=== PATIENT | male | born 1975 | race Caucasian/White ===

== ENCOUNTER 2017-06-29 21:51 | Inpatient (IN) | payer OTHER ==
[~2017-06-29] VITALS: Ht 182.9 cm; Wt 69.4 kg
[~2017-06-29 21:51] MED LIST: PERCOCET 5/31 TABLET PO
[2017-06-29 22:42] LABS: HEMATOCRIT 43.3 % (38.0-50.0); MCH 31.7 PG (29.0-34.0); MCHC 35.3 G/DL (30.0-36.0); MCV 89.6 FL (86-99); MEAN PLAT.VOLUME 10.1 uM^3 (9.0-12.4); PLATELET COUNT 352 K/uL (156-360); RBC DIS.WIDTH-CV 12.8 % (11.8-14.6); RBC DIS.WIDTH-SD 42.3 % (39-53); RED BLOOD COUNT 4.83 M/uL (4.00-5.50); WHITE BLOOD COUNT 10.1 K/uL (4.1-10.2)
[2017-06-29 22:50] LABS: CHLORIDE 104 mEq/L (99-109); POTASSIUM 3.6 mEq/L (3.7-5.4); SODIUM 141 mEq/L (136-147)
[2017-06-29 22:52] LABS: GLUCOSE 103 mg/dL (70-99)
[2017-06-29 22:54] LABS: ANION GAP 11 MEQ/L (2-14)
[2017-06-29 22:55] LABS: SERUM ETHYL ALCOHOL < 10 mg/dL
[2017-06-29 22:56] LABS: GFR ESTIMATE (CALCULATED) > 59 mL/min/ (58.99-99999)
[2017-06-29 22:58] LABS: UREA NITROGEN (BUN) 6 mg/dL (9-23)
[2017-06-29 22:59] LABS: SALICYLATE < 5.0 MG/DL (15-30)
[2017-06-30 00:20] LABS: ADD MEDTOX COMMENT Y; AMPHETAMINE NEGATIVE (500 ng/mL); BARBITURATES NEGATIVE (200 ng/mL); BENZODIAZEPINES NEGATIVE (150 ng/mL); COCAINE NEGATIVE (150 ng/mL); INTERNAL CONTROLS VALID? YES; METHADONE PRESUMPTIVE POSITIVE (200 ng/mL); METHAMPHETAMINE NEGATIVE (500 ng/mL); OPIATES (MORPHINE) NEGATIVE (100 ng/mL); OXYCODONE PRESUMPTIVE POSITIVE (100 ng/mL); PHENCYCLIDINE NEGATIVE (25 ng/mL); PROPOXYPHENE NEGATIVE (300 ng/mL); THC CANNABINOIDS PRESUMPTIVE POSITIVE (50 ng/mL); TRICYCLIC ANTIDEPRESSANTS NEGATIVE (300 ng/mL)
[2017-06-30 03:25] VITALS: BP 128/72
[2017-06-30 07:52] VITALS: BP 87/52
[2017-06-30 08:00] VITALS: BP 87/52
[2017-06-30 15:36] VITALS: BP 131/75
[2017-07-01 07:33] VITALS: BP 115/70
[2017-07-01 15:54] VITALS: BP 127/65
[2017-07-02 07:53] VITALS: BP 117/66
[2017-07-02 15:26] VITALS: BP 129/65
[2017-07-03 08:01] VITALS: BP 132/78
[2017-07-03 16:21] VITALS: BP 132/80
[2017-07-04 07:43] VITALS: BP 133/76
[2017-07-04 15:47] VITALS: BP 111/58
[2017-07-05 07:57] VITALS: BP 141/85
[2017-07-05] MEDS ORDERED: TRILAFON4 MG PO (09:52)
[2017-07-05] MEDS ORDERED: OLANZAPINE10 MG PO (09:52)
[2017-07-05] MEDS ORDERED: HYDROXYZINE PAM50 MG PO (09:52)
== END 2017-07-05 13:06 | disposition home or self-care (01) | DRG 885 ==
LOC: EME 21:51 → 1WEST 23:32 → EDOF 23:32 → ENRESERV 06-30 03:20 → 1WEST 06-30 03:20
PROVIDERS: Emergency Medicine
DX: F20.0 Paranoid schizophrenia (principal); Z91.14 Patient's other noncompliance with medication regimen; Z59.0 Homelessness; F41.1 Generalized anxiety disorder; G47.00 Insomnia, unspecified; G43.909 Migraine, unspecified, not intractable, without status migrainosus; F32.9 Major depressive disorder, single episode, unspecified; R63.4 Abnormal weight loss; Z68.1 Body mass index [BMI] 19.9 or less, adult; F12.90 Cannabis use, unspecified, uncomplicated; F17.200 Nicotine dependence, unspecified, uncomplicated; Z87.820 Personal history of traumatic brain injury
CPT/HCPCS: 70450; 72125; 80048; 84999; 85027; 90837; 97150 GO; 99281; 99285; G0480; J1630; Q0175; Q0177

== ENCOUNTER 2017-07-13 03:58 | Emergency (ER) | payer OTHER ==
[~2017-07-13] VITALS: Ht 185.4 cm; Wt 69.8 kg
[~2017-07-13 03:58] MED LIST changes: +HYDROXYZINE PAM50 MG PO; +OLANZAPINE10 MG PO; +TRILAFON4 MG PO
[2017-07-13 04:00] VITALS: BP 134/92
[2017-07-13] MEDS ORDERED: PERCOCET 5/31 TABLET PO (07:33)
[2017-07-13] MEDS ORDERED: FLEXERIL10 MG PO (07:33)
== END 2017-07-13 07:51 | disposition home or self-care (01) ==
LOC: EME 03:58
DX: M54.2 Cervicalgia (principal); F17.200 Nicotine dependence, unspecified, uncomplicated
CPT/HCPCS: 99281; 99284

== ENCOUNTER 2017-10-08 22:42 | Inpatient (IN) | payer OTHER ==
[~2017-10-08] VITALS: Ht 185.4 cm; Wt 79.3 kg
[~2017-10-08 22:42] MED LIST changes: +FLEXERIL10 MG PO
[2017-10-09 00:06] LABS: HEMATOCRIT 50.7 % (38.0-50.0); HEMOGLOBIN 17.3 G/DL (12.5-16.6); MCH 31.2 PG (29.0-34.0); MCHC 34.1 G/DL (30.0-36.0); MCV 91.4 FL (86-99); RBC DIS.WIDTH-CV 13.6 % (11.8-14.6); RBC DIS.WIDTH-SD 46.4 % (39-53); RED BLOOD COUNT 5.55 M/uL (4.00-5.50); WHITE BLOOD COUNT 9.3 K/uL (4.1-10.2)
[2017-10-09 00:16] LABS: ALBUMIN 5.4 g/dL (3.2-4.8)
[2017-10-09 00:17] LABS: CHLORIDE 105 mEq/L (99-109); POTASSIUM 3.6 mEq/L (3.7-5.4); SODIUM 143 mEq/L (136-147)
[2017-10-09 00:19] LABS: GLUCOSE 100 mg/dL (70-99); TOTAL PROTEIN 9.2 g/dL (6.4-8.3)
[2017-10-09 00:21] LABS: TOTAL BILIRUBIN 0.2 mg/dL (0.0-1.0)
[2017-10-09 00:22] LABS: SERUM ETHYL ALCOHOL 266 mg/dL
[2017-10-09 00:23] LABS: ALKALINE PHOSPHATASE 155 IU/L (3-129); GFR ESTIMATE (CALCULATED) > 59 mL/min/ (58.99-99999)
[2017-10-09 00:24] LABS: AST (GOT) 26 IU/L (2-34); UREA NITROGEN (BUN) 12 mg/dL (9-23)
[2017-10-09 00:26] LABS: ALT (GPT) 26 IU/L (3-49)
[2017-10-09 01:51] LABS: PLAT.SUFFICIENCY ADEQUATE; PLATELET COUNT 325 K/uL (156-360)
[2017-10-09 08:49] LABS: APPEARANCE CLEAR ((CLEAR)); COLOR YELLOW ((YELLOW))
[2017-10-09 08:51] LABS: BLOOD MODERATE; PROTEIN (STRIP) TRACE
[2017-10-09 08:52] LABS: BILIRUBIN NEGATIVE; GLUCOSE (STRIP) NEGATIVE; KETONES NEGATIVE; LEUKOCYTES NEGATIVE; NITRITE NEGATIVE; UROBILINOGEN 0.2 MG/DL (0.2-1.0)
[2017-10-09 09:03] LABS: BACTERIA NONE SEEN /HPF; EPITHELIAL CELLS NONE SEEN /HPF; MUCUS NONE SEEN /LPF; UCUL ADDED? NO; WHITE BLOOD CELLS RARE /HPF (0-5)
[2017-10-09 09:15] LABS: BENZODIAZEPINES, URINE SCREEN Negative (200 ng/mL)
[2017-10-09 13:12] VITALS: BP 112/74
[2017-10-09 14:06] VITALS: BP 112/74
[2017-10-09 15:49] VITALS: BP 119/72
[2017-10-09 20:20] LABS: APPEARANCE CLEAR ((CLEAR)); BILIRUBIN NEGATIVE; BLOOD MODERATE; COLOR YELLOW ((YELLOW)); GLUCOSE (STRIP) NEGATIVE; KETONES 20; LEUKOCYTES NEGATIVE; NITRITE NEGATIVE; PROTEIN (STRIP) NEGATIVE; SPECIFIC GRAVITY 1.028 (1.000-1.030); UROBILINOGEN 0.2 MG/DL (0.2-1.0)
[2017-10-09 20:37] LABS: BACTERIA NONE SEEN /HPF; EPITHELIAL CELLS RARE /HPF; MUCUS TRACE /LPF; RED BLOOD CELLS 15-20 /HPF (0-5); UCUL ADDED? NO; WHITE BLOOD CELLS 0-5 /HPF (0-5)
[2017-10-09 23:37] LABS: BASOPHIL COUNT 0.1 K/uL (0-0.1); EOSINOPHIL (%) 3.3 % (0-5); EOSINOPHIL COUNT 0.4 K/uL (0-0.3); HEMATOCRIT 41.6 % (38.0-50.0); IMMATURE GRANULOCYTE (%) 0.4 % (0.0-0.7); LYMPHOCYTE (%) 40.8 % (15-42); LYMPHOCYTE COUNT 4.7 K/uL (1.0-2.8); MCH 31.6 PG (29.0-34.0); MCHC 34.9 G/DL (30.0-36.0); MCV 90.6 FL (86-99); MONOCYTE (%) 7.4 % (3-12); MONOCYTE COUNT 0.9 K/uL (0-0.8); NEUTROPHIL (%) 47.1 % (45-76); NEUTROPHIL COUNT 5.4 K/uL (1.8-6.4); PLATELET COUNT 302 K/uL (156-360); RBC DIS.WIDTH-CV 13.7 % (11.8-14.6); RBC DIS.WIDTH-SD 45.6 % (39-53); RED BLOOD COUNT 4.59 M/uL (4.00-5.50); WHITE BLOOD COUNT 11.6 K/uL (4.1-10.2)
[2017-10-09 23:41] LABS: ALBUMIN 4.3 g/dL (3.2-4.8); CHLORIDE 101 mEq/L (99-109); HEMOGLOBIN 14.5 G/DL (12.5-16.6)
[2017-10-09 23:43] LABS: GLUCOSE 98 mg/dL (70-99); POTASSIUM 3.8 mEq/L (3.7-5.4)
[2017-10-09 23:44] LABS: SODIUM 135 mEq/L (136-147); TOTAL PROTEIN 6.9 g/dL (6.4-8.3)
[2017-10-09 23:46] LABS: TOTAL BILIRUBIN 0.4 mg/dL (0.0-1.0)
[2017-10-09 23:47] LABS: GFR ESTIMATE (CALCULATED) > 59 mL/min/ (58.99-99999)
[2017-10-09 23:49] LABS: ALKALINE PHOSPHATASE 126 IU/L (3-129); CREATININE 1.1 mg/dL (0.6-1.3)
[2017-10-09 23:50] LABS: ALT (GPT) 22 IU/L (3-49); AST (GOT) 33 IU/L (2-34)
[2017-10-10 00:03] LABS: UREA NITROGEN (BUN) 25 mg/dL (9-23)
[2017-10-10 00:20] LABS: ERTH.SED.RATE 13 MM/HR (0-15)
[2017-10-10 07:48] VITALS: BP 126/67
[2017-10-10] MEDS ORDERED: LEVOFLOXACIN750 MG PO (10:17)
[2017-10-10] MEDS ORDERED: OLANZAPINE10 MG PO (10:17)
[2017-10-10] MEDS ORDERED: TRILAFON4 MG PO (10:17)
== END 2017-10-10 12:26 | disposition home or self-care (01) | DRG 885 ==
LOC: EME 22:42 → EDOF 10-09 11:15 → 1WEST 10-09 13:14 → ENRESERV 10-09 13:14 → 1WEST 10-10 12:26
PROVIDERS: Emergency Medicine; Physician Assistant Medical; Psychiatry & Neurology Psychiatry
DX: F20.9 Schizophrenia, unspecified (principal); J18.9 Pneumonia, unspecified organism; F41.1 Generalized anxiety disorder; Z91.14 Patient's other noncompliance with medication regimen; F12.10 Cannabis abuse, uncomplicated; F17.210 Nicotine dependence, cigarettes, uncomplicated; R45.850 Homicidal ideations; S00.81XA Abrasion of other part of head, initial encounter; Z87.820 Personal history of traumatic brain injury; Z78.1 Physical restraint status; F10.120 Alcohol abuse with intoxication, uncomplicated; Y90.8 Blood alcohol level of 240 mg/100 ml or more
CPT/HCPCS: 70450; 71045; 80053; 80306 90; 81003; 83605; 85025; 85027; 85610; 85652; 87040; 87070; 87205; 87801; 90837; 99281; 99285; G0480; J1630; J2060; Q0175; Q0177